=== PATIENT | male | born 1960 | race Caucasian/White ===

== ENCOUNTER 2019-02-27 08:10 | Outpatient (CLI) | payer OTHER ==
--- NOTE | 2019-02-27 10:11 | MRI ---
MRI OF THE RIGHT ELBOW WITHOUT CONTRAST: INDICATION: History of right elbow pain and right elbow surgery in May 01, 2015. COMPARISON: None. FINDINGS: There is abnormal T2 signal involving the common flexor origin suspicious for changes of mild medial humeral epicondylitis. The ulnar collateral ligament, lateral collateral ligament and lateral ulnar collateral ligament are intact. Common extensor origin appears intact. Biceps and brachialis insertio ns are normal appearing. The triceps tendon attachment appears within normal limits. Visualized ulnar and median nerves appear within normal limits. No osteochondral defect is evident. IMPRESSION: Mild medial humeral epicondylitis. Transcribed Date/Time: 02/27/2019 10:24 AM
== END 2019-02-27 08:11 | disposition home or self-care (01) ==
LOC: SCSMRI 08:10
PROVIDERS: ATTEND Orthopaedic Surgery
DX: M25.521 Pain in right elbow (principal); M77.01 Medial epicondylitis, right elbow

== ENCOUNTER 2024-11-29 10:01 | Outpatient (CLI) | payer OTHER | END 2024-11-29 10:02 | disposition home or self-care (01) | LOC: SCSMRI 10:01 | PROVIDERS: ATTEND Family Medicine Sports Medicine | DX: M77.8 Other enthesopathies, not elsewhere classified (principal); S23.3XXA Sprain of ligaments of thoracic spine, initial encounter; M19.032 Primary osteoarthritis, left wrist ==